=== PATIENT | female | born 1960 | race Two or more races ===

== ENCOUNTER 2021-02-26 14:21 | Emergency (ER) | payer SELFPAY ==
[~2021-02-26] VITALS: Ht 177.8 cm; Wt 109.8 kg
[2021-02-26 14:40] VITALS: BP 151/94
[2021-02-26 15:43] LABS: Basophils # (auto) 0.1 10 ^3/uL (0-0.2); Basophils % (auto) 1.6 % (0.0-2.0); Eosinophils # (auto) 0 10 ^3/uL (0-0.8); Eosinophils % (auto) 0.3 % (0.0-7.0); Hematocrit 44.9 % (36.0-46.0); Hemoglobin 14.6 g/dL (12.2-16.2); Lymphocytes # (auto) 1.3 10 ^3/uL (0.4-5.4); Lymphocytes % (auto) 19.7 % (10.0-50.0); Mean Corpuscular Hemoglobin 28.4 pg (28.0-32.0); Mean Corpuscular Hgb Conc. 32.5 g/dL (32.0-36.0); Mean Corpuscular Volume 87.4 fL (80.0-100.0); Monocytes # (auto) 0.7 10 ^3/uL (0-1.3); Monocytes % (auto) 10.3 % (0.0-12.0); Neutrophils # (auto) 4.5 10 ^3/uL (1.6-8.6); Neutrophils % (auto) 68.1 % (37.0-80.0); Nucleated Red Blood Cells % 0.1 %; Red Blood Cells 5.14 10^6/uL (4.0-5.20); Red Cell Distribution Width 13.9 % (11.8-14.3); White Blood Cell 6.6 10^3/uL (4.4-10.8)
[2021-02-26 15:52] LABS: Calcium 9.2 mg/dL (8.5-10.1)
[2021-02-26 15:56] LABS: BUN/Creatinine Ratio 9.6; Bilirubin, Total 0.6 mg/dL (0.2-1.0); Total Protein 7.8 g/dL (6.4-8.2)
== END 2021-02-27 04:47 | disposition left against medical advice (07) ==
LOC: ER 14:21
DX: R10.9 Unspecified abdominal pain (principal); R31.9 Hematuria, unspecified; Z53.21 Procedure and treatment not carried out due to patient leaving prior to being seen by health care provider
CPT/HCPCS: 36415; 74176; 80053; 85025